=== PATIENT | female | born 1970 | race African-American/Black ===

== ENCOUNTER → 2019-09-17 | Outpatient (CLI) | payer OTHER ==
--- NOTE | 2019-09-17 18:19 | RAD ---
CHEST PA LATERAL Technique: PA and lateral views of the chest were obtained. Clinical History: Precordial chest pain Comparison: None. Findings: The heart and pulmonary vasculature appear within normal limits. A few linear opacities in the left lung base are likely discoid atelectasis. The pleural margins are clear. Impression: No acute chest process is seen. Electronically signed by: Amador Potts III, MD (09/17/2019 6:16 PM) [facility]
== END | disposition home or self-care (01) ==
LOC: DXRAD 16:42
PROVIDERS: ATTEND Family Medicine
DX: R07.2 Precordial pain (principal)
CPT/HCPCS: 71046

== ENCOUNTER → 2019-11-12 | Outpatient (CLI) | payer OTHER ==
[~2019-11-12] MED LIST: IOHEXOL 350 MG/ML 100 ML VIAL. IV ONE
--- NOTE | 2019-11-12 16:37 | RAD ---
Examination: CT angiography chest HISTORY: History of chest pain COMPARISON: None available Technique: Axial CT angiographic images of chest were performed with IV contrast. Coronal and sagittal 3-D MIP reformats are performed. Exposure: One or more of the following individualized dose reduction techniques were utilized for this examination: 1. Automated exposure control 2. Adjustment of the mA and/or kV according to patient size 3. Use of iterative reconstruction technique FINDINGS: The central airways are patent. The caliber of the aorta grossly appears unremarkable. There is no evidence of filling defect identified in the main pulmonary arterial trunk and right and left main pulmonary arteries. Mild airspace opacities identified in the right middle lobe, bibasilar lungs likely atelectasis or infiltrates. The visualized liver, adrenals grossly appears unremarkable. No evidence of lytic bony destructive lesion. IMPRESSION: 1. No evidence of pulmonary embolism. 2. Minimal right middle lobe, bibasilar lung atelectasis or infiltrates. Electronically signed by: Messi Christian MD (11/12/2019 4:34 PM) [id number]
[2019-11-12 16:52] LABS: CALCIUM 9.1 mg/dL (8.5-10.1); GFR 71.6; POTASSIUM 3.7 mmol/L (3.5-5.1)
== END | disposition home or self-care (01) ==
LOC: CT 15:52
PROVIDERS: ATTEND Family Medicine
DX: R07.89 Other chest pain (principal); E03.8 Other specified hypothyroidism
CPT/HCPCS: 36415; 71275; 80048; 84443; Q9967

== ENCOUNTER → 2021-02-15 | Outpatient (CLI) | payer OTHER ==
--- NOTE | 2021-02-15 16:41 | RAD ---
XR KNEE _3 VIEWS_LT 02/15/2021 1:20 PM INDICATION: Left medial knee pain COMPARISON: None available. TECHNIQUE: 3 views left knee are provided. FINDINGS/ IMPRESSION: Small to moderate knee joint effusion. There is no acute fracture or dislocation. Joint spaces are ma intained. Bone mineralization is within normal limits. Regional soft tissues are within normal limits . There is no soft tissue gas or osseous erosion. No radiopaque foreign body. Electronically signed by: Nieves Hart MD (02/15/2021 4:39 PM) [id number]
== END ==
LOC: RAD 13:06
PROVIDERS: ATTEND Nurse Practitioner Family
DX: M25.462 Effusion, left knee (principal)
CPT/HCPCS: 73562